=== PATIENT | male | born 1950 | race Caucasian/White ===

== ENCOUNTER 2019-12-28 16:54 | Emergency (ER) | payer BC, SELFPAY ==
[2019-12-28 17:14] VITALS: BMI 23.5
[2019-12-28 17:16] VITALS: BP 135/84; PULSE 74; RESP 16; TEMP 36.7; O2SAT 98
== END 2019-12-28 19:40 | disposition left against medical advice (07) ==
LOC: ER 17:20
PROVIDERS: Emergency Provider Emergency Medicine
DX: Z53.21 Procedure and treatment not carried out due to patient leaving prior to being seen by health care provider (principal)
CPT/HCPCS: 99281